=== PATIENT | female | born 1950 | race Caucasian/White ===

== ENCOUNTER → 2016-05-28 | Outpatient (CLI) | payer BC ==
--- NOTE | 2016-05-29 11:13 | MM ---
Reason for exam: screening (asymptomatic). Last mammogram was performed 1 year ago. History: Patient is postmenopausal and had first child at age 35. Family history of breast cancer in mother at age 56. Benign stereotactic core biopsy of the left breast, March 01, 2001. Took estrogen for 2 years beginning at age 42. Took progesterone for 2 years beginning at age 44. Physical Findings: A clinical breast exam by your physician is recommended on an annual basis and results should be correlated with mammographic findings. MG Screening Mammo w CAD Bilateral CC and MLO view(s) were taken. Prior study comparison: May 15, 2015, bilateral MG screening mammo w CAD. May 02, 2014, bilateral MG screening mammo w CAD. The breast tissue is heterogeneously dense. This may lower the sensitivity of mammography. Focal asymmetry upper right breast seen on MLO view. This finding is changed when compared with previous exams. ASSESSMENT: Incomplete: need additional imaging evaluation, BI-RAD 0 RECOMMENDATION: Special view mammogram of the right breast. If lesion persists on supplemental views, image directed ultrasound is recommended. [facility] will attempt to contact patient to return for supplemental views and ultrasound if indicated.
== END | disposition home or self-care (01) ==
LOC: RADMAMWWP 07:03
PROVIDERS: ATTEND Family Medicine
DX: Z12.31 Encounter for screening mammogram for malignant neoplasm of breast (principal)

== ENCOUNTER → 2016-06-02 | Outpatient (CLI) | payer BC ==
--- NOTE | 2016-06-02 08:33 | MM ---
Reason for exam: additional evaluation requested from abnormal screening. Last mammogram was performed less than 1 month ago. History: Patient is postmenopausal and had first child at age 35. Family history of breast cancer in mother at age 56. Benign stereotactic core biopsy of the left breast, March 01, 2001. Took estrogen for 2 years beginning at age 42. Took progesterone for 2 years beginning at age 44. Physical Findings: Nurse did not find any significant physical abnormalities on exam. MG Work Up Mamm w CAD RT Spot compression CC, spot compression MLO, and ML view(s) were taken of the right breast. Prior study comparison: May 28, 2016, bilateral MG screening mammo w CAD. May 15, 2015, bilateral MG screening mammo w CAD. There is no discrete abnormality including area of concern. These results were verbally communicated with the patient and result sheet given to the patient on 06/02/16. ASSESSMENT: Probably benign, BI-RAD 3 RECOMMENDATION: Follow-up diagnostic mammogram of the right breast in 6 months.
== END | disposition home or self-care (01) ==
LOC: RADMAMWWP 07:11
PROVIDERS: ATTEND Family Medicine
DX: R92.8 Other abnormal and inconclusive findings on diagnostic imaging of breast (principal)

== ENCOUNTER → 2016-07-11 | Outpatient (CLI) | payer BC ==
--- NOTE | 2016-07-11 09:07 | BD ---
EXAMINATION TYPE: MG DEXA axial skeleton. DATE OF EXAM: 07/11/2016 7:35 AM COMPARISON: NONE CLINICAL HISTORY: Height: 62 Weight: 133.9 FRAX RISK QUESTIONS: Alcohol (3 or more units per day): yes Family History (Parent hip fracture): no Glucocorticoids (More than 3mos): no (Ex: prednisone, prednisolone, methylprednisolone, dexamethasone, and hydrocortisone). History of Fracture in Adulthood: no Secondary Osteoporosis: 1. Type 1 Diabetes: no 2. Hyperthyroidism: no 3. Menopause before 45: yes 4. Malnutrition: no 5. Chronic liver disease: no Rheumatoid Arthritis: no Current Tobacco Use: no RISK FACTORS HISTORY OF: Hip Fracture (Right/Left): no Spine Fracture: no History of Wrist Fracture: no Surgery to Spine/Hip(right/left)/Wrist (right/left): no Family History of Osteoporosis: no Active: yes Diet low in dairy products/other sources of calcium: no Postmenopausal woman: hysterectomy age 44 Lost more than 2 inches in height since high school: no Frequent falls: no Adrenal Insufficiency: no MEDICATIONS: anxiety meds EXAM MEASUREMENTS: Bone mineral densitometry was performed using the [employer] System. Bone mineral density as measured about the Lumbar spine is: ----- L1-L4(G/cm2): 0.911 T Score Values are as follows: ----- L2: -2.6 ----- L3: -1.7 ----- L4: -2.4 ----- L1-L4: -2.2 Bone mineral density has: increased 4.2 % since study of: 07.10.2014 Bone mineral density about the R hip (g/cm2): 0.867 Bone mineral density about the L hip (g/cm2): 0.874 T Score values are as follows: -----R Neck: -1.2 -----L Neck: -1.2 -----R Intertrochanter: -1.5 -----L Intertrochanter: -1.6 Bone mineral density has: increased 1.4 % since study of: 07.10.2014 IMPRESSION: OSTEOPENIA. MAJOR OSTEOPOROTIC FRACTURE RISK: 8.1% HIP FRACTURE RISK: 0.7% NOTE: T-SCORE=SD OF THE YOUNG ADULT MEAN.
== END | disposition home or self-care (01) ==
LOC: RADBDWWP 07:13
PROVIDERS: ATTEND Family Medicine
DX: Z13.820 Encounter for screening for osteoporosis (principal); M85.80 Other specified disorders of bone density and structure, unspecified site
CPT/HCPCS: 77080

== ENCOUNTER → 2016-12-04 | Outpatient (CLI) | payer BC ==
--- NOTE | 2016-12-05 09:03 | MM ---
Reason for exam: follow-up at short interval from prior study. Last mammogram was performed 6 months ago. History: Patient is postmenopausal and had first child at age 35. Family history of breast cancer in mother at age 56. Benign stereotactic core biopsy of the left breast, March 01, 2001. Took estrogen for 2 years beginning at age 42. Took progesterone for 2 years beginning at age 44. Physical Findings: Nurse did not find any significant physical abnormalities on exam. MG Diagnostic Mammo RT w CAD CC and MLO view(s) were taken of the right breast. Prior study comparison: June 02, 2016, right breast MG work up mamm w CAD RT. May 28, 2016, bilateral MG screening mammo w CAD. The breast tissue is heterogeneously dense. This may lower the sensitivity of mammography. Stable benign calcifications. No significant new findings when compared with previous films. These results were verbally communicated with the patient and result sheet given to the patient on 12/04/16. ASSESSMENT: Benign, BI-RAD 2 RECOMMENDATION: Routine screening mammogram of both breasts in 6 months. Back on schedule.
== END | disposition home or self-care (01) ==
LOC: RADMAMWWP 07:43
PROVIDERS: ATTEND Obstetrics & Gynecology
DX: R92.8 Other abnormal and inconclusive findings on diagnostic imaging of breast (principal)

== ENCOUNTER → 2017-06-22 | Outpatient (CLI) | payer BC ==
--- NOTE | 2017-06-23 08:57 | MM ---
Reason for exam: screening (asymptomatic). Last mammogram was performed 7 months ago. History: Patient is postmenopausal and had first child at age 35. Family history of breast cancer in mother at age 56. Benign stereotactic core biopsy of the left breast, March 01, 2001. Took estrogen for 2 years beginning at age 42. Took progesterone for 2 years beginning at age 44. Physical Findings: A clinical breast exam by your physician is recommended on an annual basis and results should be correlated with mammographic findings. MG Screening Mammo w CAD Bilateral CC and MLO view(s) were taken. Prior study comparison: December 04, 2016, right breast MG diagnostic mammo RT w CAD. June 02, 2016, right breast MG work up mamm w CAD RT. The breast tissue is heterogeneously dense. This may lower the sensitivity of mammography. Stable benign calcifications. No significant changes when compared with prior studies. ASSESSMENT: Benign, BI-RAD 2 RECOMMENDATION: Routine screening mammogram of both breasts in 1 year.
== END | disposition home or self-care (01) ==
LOC: RADMAMWWP 07:21
PROVIDERS: ATTEND Family Medicine
DX: Z12.31 Encounter for screening mammogram for malignant neoplasm of breast (principal)
CPT/HCPCS: 77067

== ENCOUNTER → 2017-12-09 | Outpatient (CLI) | payer BC, MEDICARE ==
--- NOTE | 2017-12-09 15:10 | BD ---
EXAMINATION TYPE: Axial Bone Density DATE OF EXAM: 12/09/2017 COMPARISON: NONE CLINICAL HISTORY: 66-year-old female age-related osteoporosis, postmenopausal screening Height: 5 FT 2 IN Weight: 134 FRAX RISK QUESTIONS: Secondary Osteoporosis: 3. Menopause before 45: YES RISK FACTORS HISTORY OF: Active: YES Postmenopausal woman: TOTAL HYST AGE 44 Take estrogen and/or progesterone medications: TOOK AROUND 6 MONTHS AFTER HYST MEDICATIONS: Additional Medications: ANTI STRESS MEDS,VITAMINS Additional History: EXAM MEASUREMENTS: Bone mineral densitometry was performed using the [employer] System. Bone mineral density as measured about the Lumbar spine is: ----- L1-L4(G/cm2): 0.976 T Score Values are as follows: ----- L2: -2.0 ----- L3: -1.3 ----- L4: -1.9 ----- L1-L4: -1.7 Bone mineral density has: INCREASED 6.6 % since study of: 2016 Bone mineral density about the R hip (g/cm2): 0.875 Bone mineral density about the L hip (g/cm2): 0.908 T Score values are as follows: -----R Neck: -1.2 -----L Neck: -0.9 -----R Total: -0.9 -----L Total: -0.9 Bone mineral density has: INCREASED 4.0 % since study of: 2016 IMPRESSION: Osteopenia (T Score between -2.5 and -1). There is slightly increased risk of fracture and the patient may be considered for treatment. Re-Screen 2-5 years. NOTE: T-SCORE=SD OF THE YOUNG ADULT MEAN.
== END | disposition home or self-care (01) ==
LOC: RADBDWWP 07:15
PROVIDERS: ATTEND Family Medicine
DX: M85.89 Other specified disorders of bone density and structure, multiple sites (principal)
CPT/HCPCS: 77080

== ENCOUNTER → 2018-06-23 | Outpatient (CLI) | payer MEDICARE, BC ==
--- NOTE | 2018-06-24 10:14 | MM ---
Reason for exam: screening (asymptomatic). Last mammogram was performed 1 year ago. History: Patient is postmenopausal and had first child at age 35. Family history of breast cancer in mother at age 56. Benign stereotactic core biopsy of the left breast, March 01, 2001. Took estrogen for 2 years beginning at age 42. Took progesterone for 2 years beginning at age 44. Physical Findings: A clinical breast exam by your physician is recommended on an annual basis and results should be correlated with mammographic findings. MG 3D Screening Mammo W/Cad Bilateral CC and MLO view(s) were taken. Prior study comparison: June 22, 2017, bilateral MG screening mammo w CAD. December 04, 2016, right breast MG diagnostic mammo RT w CAD. The breast tissue is heterogeneously dense. This may lower the sensitivity of mammography. Stable benign calcifications. There is no discrete abnormality. No significant changes when compared with prior studies. ASSESSMENT: Benign, BI-RAD 2 RECOMMENDATION: Routine screening mammogram of both breasts in 1 year.
== END | disposition home or self-care (01) ==
LOC: RADMAMWWP 08:39
PROVIDERS: ATTEND Family Medicine
DX: Z12.31 Encounter for screening mammogram for malignant neoplasm of breast (principal)
CPT/HCPCS: 77063; 77067

== ENCOUNTER 2018-08-04 15:17 | Emergency (ER) | payer MEDICARE, BC ==
[2018-08-04 15:26] VITALS: RESP 16
[2018-08-04] MEDS ORDERED: ACETAMINOPHEN TAB 325 MG TAB PO STA (15:47)
[2018-08-04] MEDS ORDERED: SODIUM CHLORIDE 0.9% 1,000 ML IV ONE (15:47)
[2018-08-04 16:13] LABS: Basophils % (A) 0 %; Eosinophils # (A) 0.1 k/uL (0-0.7); Eosinophils % (A) 1 %; HCT 39.3 % (34.0-46.0); HGB 13.1 gm/dL (11.4-16.0); Lymphocytes # (A) 1.9 k/uL (1.0-4.8); Lymphocytes % (A) 17 %; MCH 29.9 pg (25.0-35.0); MCHC 33.3 g/dL (31.0-37.0); MCV 89.9 fL (80.0-100.0); Mean Platelet Volume 7.8; Monocytes # (A) 0.3 k/uL (0-1.0); Monocytes % (A) 3 %; Neutrophils # (A) 8.7 k/uL (1.3-7.7); Neutrophils % (A) 78 %; Platelet Count 214 k/uL (150-450); RBC 4.37 m/uL (3.80-5.40); RDW 14.7 % (11.5-15.5); WBC 11.1 k/uL (3.8-10.6)
[2018-08-04 16:21] LABS: ALT 26 U/L (9-52); AST 23 U/L (14-36); Albumin 4.7 g/dL (3.5-5.0); Alkaline Phosphatase 43 U/L (38-126); Anion Gap 7 mmol/L; Blood Urea Nitrogen 17 mg/dL (7-17); Carbon Dioxide 26 mmol/L (22-30); Chloride 106 mmol/L (98-107); Glucose 102 mg/dL (74-99); Potassium 4.3 mmol/L (3.5-5.1); Sodium 139 mmol/L (137-145); Total Bilirubin 0.6 mg/dL (0.2-1.3)
--- NOTE | 2018-08-04 16:22 | XR ---
EXAMINATION TYPE: XR chest 2V DATE OF EXAM: 08/04/2018 COMPARISON: NONE HISTORY: Shortness of breath TECHNIQUE: Frontal and lateral views of the chest are obtained. FINDINGS: Scattered senescent parenchymal changes noted. No evidence for infiltrate. No evidence for atelectasis. Heart size is stable. Mediastinal structures are stable and grossly unremarkable. No evidence for hilar prominence. Degenerative changes dorsal spine. IMPRESSION: 1. No evidence for acute pulmonary disease.
--- NOTE | 2018-08-04 17:07 | ED ---
URI HPI - General Chief Complaint: Upper Respiratory Infection Stated Complaint: CONGESTION, CHUCK, LETHARGY Time Seen by Provider: 08/04/18 15:33 Source: patient, RN notes reviewed Mode of arrival: wheelchair Limitations: no limitations - History of Present Illness Initial Comments: This 67-year-old female presents emergency Department chief complaint of URI symptoms. Patient states she's been sick for 1 week states that she is not getting better states is worse today. States that she just very fatigued, tired, increased in size for pressure and cough. Patient states her cough is productive at times. Denies any chest pain. She does admit to occasional shortness of breath. Patient has no nausea vomiting diarrhea constipation denies any relief with [id number] medications. She does admit that she watches small child who has sick with current symptoms temp 103. Patient denies taking any recent Tylenol Motrin. - Related Data Home Medications Medication Instructions Recorded Confirmed Acetaminophen/Diphenhydramine 1 tab PO HS 08/04/18 08/04/18 [Tylenol PM 500-25mg] Calcium Carbonate [Calcium] 600 mg PO DAILY 08/04/18 08/04/18 Escitalopram [Lexapro] 10 mg PO DAILY 08/04/18 08/04/18 [place]-3 Fatty Acids [[place]-3] 1,000 mg PO DAILY 08/04/18 08/04/18 Previous Rx's Medication Instructions Recorded Cefuroxime Axetil [Ceftin] 500 mg PO BID #20 tab 08/04/18 Allergies Allergy/AdvReac Type Severity Reaction Status Date / Time amoxicillin Allergy Unknown Verified 08/04/18 15:26 latex Allergy Rash/Hives Verified 08/04/18 16:27 nickel Allergy Rash/Hives Verified 08/04/18 16:31 Review of Systems ROS Statement: Those systems with pertinent positive or pertinent negative responses have been documented in the HPI. ROS Other: All systems not noted in ROS Statement are negative. Past Medical History Past Medical History: No Reported History History of Any Multi-Drug Resistant Organisms: None Reported Past Surgical History: Hysterectomy, Orthopedic Surgery Past Psychological History: Anxiety Smoking Status: Never smoker Past Alcohol Use History: None Reported Past Drug Use History: None Reported General Exam Limitations: no limitations General appearance: alert, in no apparent distress Head exam: Present: atraumatic, normocephalic, normal inspection Eye exam: Present: normal appearance, PERRL, EOMI. Absent: scleral icterus, conjunctival injection, periorbital swelling ENT exam: Present: normal exam, normal oropharynx, mucous membranes moist, TM's normal bilaterally Neck exam: Present: normal inspection, full ROM. Absent: tenderness, meningismus, lymphadenopathy Respiratory exam: Present: normal lung sounds bilaterally. Absent: respiratory distress, wheezes, rales, rhonchi, stridor Cardiovascular Exam: Present: regular rate, normal rhythm, normal heart sounds. Absent: systolic murmur, diastolic murmur, rubs, gallop, clicks GI/Abdominal exam: Present: soft, normal bowel sounds. Absent: distended, tenderness, guarding, rebound, rigid Neurological exam: Present: alert, oriented X3, CN II-XII intact Skin exam: Present: warm, dry, intact, normal color. Absent: rash Course Vital Signs 08/04/18 08/04/18 08/04/18 15:23 17:38 18:01 Temperature 100.3 F H 99.0 F Pulse Rate 81 72 Respiratory 16 16 Rate Blood Pressure 109/73 115/71 O2 Sat by Pulse 96 97 Oximetry Medical Decision Making - Lab Data Result diagrams: 08/04/18 16:02 08/04/18 16:02 Lab Results 08/04/18 08/04/18 08/04/18 Range/Units 16:02 16:02 16:02 WBC 11.1 H (3.8-10.6) k/uL RBC 4.37 (3.80-5.40) m/uL Hgb 13.1 (11.4-16.0) gm/dL Hct 39.3 (34.0-46.0) % MCV 89.9 (80.0-100.0) fL MCH 29.9 (25.0-35.0) pg MCHC 33.3 (31.0-37.0) g/dL RDW 14.7 (11.5-15.5) % Plt Count 214 (150-450) k/uL Neutrophils % 78 % Lymphocytes % 17 % Monocytes % 3 % Eosinophils % 1 % Basophils % 0 % Neutrophils # 8.7 H (1.3-7.7) k/uL Lymphocytes # 1.9 (1.0-4.8) k/uL Monocytes # 0.3 (0-1.0) k/uL Eosinophils # 0.1 (0-0.7) k/uL Basophils # 0.0 (0-0.2) k/uL Sodium 139 (137-145) mmol/L Potassium 4.3 (3.5-5.1) mmol/L Chloride 106 (98-107) mmol/L Carbon Dioxide 26 (22-30) mmol/L Anion Gap 7 mmol/L BUN 17 (7-17) mg/dL Creatinine 0.68 (0.52-1.04) mg/dL Est GFR (CKD-EPI)AfAm >90 (>60 ml/min/1.73 sqM) Est GFR (CKD-EPI)NonAf >90 (>60 ml/min/1.73 sqM) Glucose 102 H (74-99) mg/dL Plasma Lactic Acid Fredo (0.7-2.0) mmol/L Calcium 10.0 (8.4-10.2) mg/dL Total Bilirubin 0.6 (0.2-1.3) mg/dL AST 23 (14-36) U/L ALT 26 (9-52) U/L Alkaline Phosphatase 43 (38-126) U/L Troponin I (0.000-0.034) ng/mL Total Protein 8.0 (6.3-8.2) g/dL Albumin 4.7 (3.5-5.0) g/dL Urine Color Urine Appearance (Clear) Urine pH (5.0-8.0) Ur Specific [place] (1.001-1.035) Urine Protein (Negative) Urine Glucose (UA) (Negative) Urine Ketones (Negative) Urine Blood (Negative) Urine Nitrite (Negative) Urine Bilirubin (Negative) Urine Urobilinogen (<2.0) mg/dL Ur Leukocyte Esterase (Negative) Urine RBC (0-5) /hpf Urine WBC (0-5) /hpf Ur Squamous Epith Cells (0-4) /hpf Amorphous Sediment (None) /hpf Urine Bacteria (None) /hpf Heterophile Antibody Negative (Negative) Influenza Type A RNA (Not Detectd) Influenza Type B (PCR) (Not Detectd) 08/04/18 08/04/18 08/04/18 Range/Units 16:02 16:02 16:09 WBC (3.8-10.6) k/uL RBC (3.80-5.40) m/uL Hgb (11.4-16.0) gm/dL Hct (34.0-46.0) % MCV (80.0-100.0) fL MCH (25.0-35.0) pg MCHC (31.0-37.0) g/dL RDW (11.5-15.5) % Plt Count (150-450) k/uL Neutrophils % % Lymphocytes % % Monocytes % % Eosinophils % % Basophils % % Neutrophils # (1.3-7.7) k/uL Lymphocytes # (1.0-4.8) k/uL Monocytes # (0-1.0) k/uL Eosinophils # (0-0.7) k/uL Basophils # (0-0.2) k/uL Sodium (137-145) mmol/L Potassium (3.5-5.1) mmol/L Chloride (98-107) mmol/L Carbon Dioxide (22-30) mmol/L Anion Gap mmol/L BUN (7-17) mg/dL Creatinine (0.52-1.04) mg/dL Est GFR (CKD-EPI)AfAm (>60 ml/min/1.73 sqM) Est GFR (CKD-EPI)NonAf (>60 ml/min/1.73 sqM) Glucose (74-99) mg/dL Plasma Lactic Acid Fredo 0.9 (0.7-2.0) mmol/L Calcium (8.4-10.2) mg/dL Total Bilirubin (0.2-1.3) mg/dL AST (14-36) U/L ALT (9-52) U/L Alkaline Phosphatase (38-126) U/L Troponin I <0.012 (0.000-0.034) ng/mL Total Protein (6.3-8.2) g/dL Albumin (3.5-5.0) g/dL Urine Color Urine Appearance (Clear) Urine pH (5.0-8.0) Ur Specific [place] (1.001-1.035) Urine Protein (Negative) Urine Glucose (UA) (Negative) Urine Ketones (Negative) Urine Blood (Negative) Urine Nitrite (Negative) Urine Bilirubin (Negative) Urine Urobilinogen (<2.0) mg/dL Ur Leukocyte Esterase (Negative) Urine RBC (0-5) /hpf Urine WBC (0-5) /hpf Ur Squamous Epith Cells (0-4) /hpf Amorphous Sediment (None) /hpf Urine Bacteria (None) /hpf Heterophile Antibody (Negative) Influenza Type A RNA Not Detected (Not Detectd) Influenza Type B (PCR) Not Detected (Not Detectd) 08/04/18 Range/Units 17:00 WBC (3.8-10.6) k/uL RBC (3.80-5.40) m/uL Hgb (11.4-16.0) gm/dL Hct (34.0-46.0) % MCV (80.0-100.0) fL MCH (25.0-35.0) pg MCHC (31.0-37.0) g/dL RDW (11.5-15.5) % Plt Count (150-450) k/uL Neutrophils % % Lymphocytes % % Monocytes % % Eosinophils % % Basophils % % Neutrophils # (1.3-7.7) k/uL Lymphocytes # (1.0-4.8) k/uL Monocytes # (0-1.0) k/uL Eosinophils # (0-0.7) k/uL Basophils # (0-0.2) k/uL Sodium (137-145) mmol/L Potassium (3.5-5.1) mmol/L Chloride (98-107) mmol/L Carbon Dioxide (22-30) mmol/L Anion Gap mmol/L BUN (7-17) mg/dL Creatinine (0.52-1.04) mg/dL Est GFR (CKD-EPI)AfAm (>60 ml/min/1.73 sqM) Est GFR (CKD-EPI)NonAf (>60 ml/min/1.73 sqM) Glucose (74-99) mg/dL Plasma Lactic Acid Fredo (0.7-2.0) mmol/L Calcium (8.4-10.2) mg/dL Total Bilirubin (0.2-1.3) mg/dL AST (14-36) U/L ALT (9-52) U/L Alkaline Phosphatase (38-126) U/L Troponin I (0.000-0.034) ng/mL Total Protein (6.3-8.2) g/dL Albumin (3.5-5.0) g/dL Urine Color Colorless Urine Appearance Clear (Clear) Urine pH 6.5 (5.0-8.0) Ur Specific [place] 1.005 (1.001-1.035) Urine Protein Negative (Negative) Urine Glucose (UA) Negative (Negative) Urine Ketones Negative (Negative) Urine Blood Negative (Negative) Urine Nitrite Negative (Negative) Urine Bilirubin Negative (Negative) Urine Urobilinogen <2.0 (<2.0) mg/dL Ur Leukocyte Esterase Moderate H (Negative) Urine RBC 2 (0-5) /hpf Urine WBC 2 (0-5) /hpf Ur Squamous Epith Cells 1 (0-4) /hpf Amorphous Sediment Rare H (None) /hpf Urine Bacteria Rare H (None) /hpf Heterophile Antibody (Negative) Influenza Type A RNA (Not Detectd) Influenza Type B (PCR) (Not Detectd) Disposition Clinical Impression: Upper respiratory infection, Sinusitis Disposition: HOME SELF-CARE Condition: Stable Instructions (If sedation given, give patient instructions): Upper Respiratory Infection (ED) Additional Instructions: Please return to the Emergency Department if symptoms worsen or any other concerns. Prescriptions: Cefuroxime Axetil [Ceftin] 500 mg PO BID #20 tab Is patient prescribed a controlled substance at d/c from ED?: No Referrals: Ernie White DO [Primary Care Provider] - 1-2 days Time of Disposition: 18:06
[2018-08-04 17:17] LABS: Amorphous Sediment,Urine Rare /hpf; Appearance,Urine Clear (Clear); Bacteria,Urine Rare /hpf; Bilirubin,Urine Negative (Negative); Blood,Urine Negative (Negative); Color,Urine Colorless; Glucose,Urine (UA) Negative (Negative); Ketones,Urine Negative (Negative); Leukocyte Esterase,Urine Moderate (Negative); Nitrite,Urine Negative (Negative); PH, Urine 6.5 (5.0-8.0); Protein,Urine Negative (Negative); RBC,Urine 2 /hpf (0-5); Specific Gravity,Urine 1.005 (1.001-1.035); Squamous Epithelial Cell,Urine 1 /hpf (0-4); Urobilinogen,Urine <2.0 mg/dL (<2.0)
[2018-08-04 17:39] VITALS: TEMP 99
[2018-08-04 18:02] VITALS: BP 115/71; PULSE 72
[2018-08-04] MEDS ORDERED: cefTRIAXone IN SWFI 1,000 MG/10 ML SYRINGE IVP STA (18:05)
== END 2018-08-04 18:22 | disposition home or self-care (01) ==
LOC: EC 15:17
DX: J06.9 Acute upper respiratory infection, unspecified (principal); J32.9 Chronic sinusitis, unspecified; F41.9 Anxiety disorder, unspecified; Z90.710 Acquired absence of both cervix and uterus; Z98.890 Other specified postprocedural states; Z79.899 Other long term (current) drug therapy; Z88.0 Allergy status to penicillin; Z91.040 Latex allergy status; Z91.048 Other nonmedicinal substance allergy status
CPT/HCPCS: 36415; 80053; 83605; 84484; 85025; 86308; 81001; 87040; 87502; 71046; 99285; 96374; 96361 ×2; J0696

== ENCOUNTER → 2019-01-19 | Outpatient (CLI) | payer MEDICARE, BC ==
--- NOTE | 2019-01-19 16:33 | BD ---
EXAMINATION TYPE: Axial Bone Density DATE OF EXAM: 01/19/2019 COMPARISON: 2017 CLINICAL HISTORY: osteopenia Height: 5'2 1/2 Weight: 127 FRAX RISK QUESTIONS: Secondary Osteoporosis: 3. Menopause before 45: y RISK FACTORS HISTORY OF: Postmenopausal woman: y MEDICATIONS: Osteoporosis Medications: Which medication: Prolia How Lon years Additional Medications: anxiety, Additional History: EXAM MEASUREMENTS: Bone mineral densitometry was performed using the [employer] System. Bone mineral density as measured about the Lumbar spine is: ----- L1-L4(G/cm2): 0.981 T Score Values are as follows: ----- L2: -2.3 ----- L3: -1.2 ----- L4: -1.5 ----- L1-L4: -1.7 Bone mineral density has: Increased 1.3% since study of: 12/09/2017 Bone mineral density about the R hip (g/cm2): 0.875 Bone mineral density about the L hip (g/cm2): 0.901 T Score values are as follows: -----R Neck: -1.2 -----L Neck: -1.0 -----R Total: -0.8 -----L Total: -0.9 Bone mineral density has: Increased 0.8% since study of: 12/09/2017 IMPRESSION: Osteopenia (T Score between -2.5 and -1). There is slightly increased risk of fracture and the patient may be considered for treatment. Re-Screen 2-5 years. NOTE: T-SCORE=SD OF THE YOUNG ADULT MEAN.
== END | disposition home or self-care (01) ==
LOC: RADBDWWP 09:22
PROVIDERS: ATTEND Obstetrics & Gynecology
DX: M85.88 Other specified disorders of bone density and structure, other site (principal)
CPT/HCPCS: 77080

== ENCOUNTER 2019-05-03 12:44 | Emergency (ER) | payer MEDICARE, BC ==
[2019-05-03 12:59] VITALS: RESP 16
--- NOTE | 2019-05-03 13:59 | CT ---
EXAMINATION TYPE: CT brain cspine wo con, CT facial bones wo con DATE OF EXAM: 05/03/2019 COMPARISON: NONE HISTORY: Fall injury with headache, neck pain, and facial pain. CT DLP: 1045.5 mGycm. Automated Exposure Control for Dose Reduction was Utilized. TECHNIQUE: CT scan of the head and cervical spine are performed without contrast. FINDINGS: There is no acute intracranial hemorrhage or midline shift identified. Mild ventricular a nd sulcal prominence. The calvarium is intact. Nasal bones are intact. Orbital floors and philip are intact. The globes are intact bilaterally. Intra conal fat is preserved bilaterally. Zygomatic arches are intact. The mandible is intact. Temporomandi bular joints are maintained bilaterally. Pterygoid plates are intact. Visualized maxilla is intact. P aranasal sinuses are grossly clear. No suspicious opacification mastoid air cells bilaterally. Cervical spine is visualized in its entirety from C1 through upper thoracic levels and demonstrates s atisfactory alignment without evidence of acute fracture or dislocation. Prevertebral soft tissue ap pears within normal limits. The C1-C2 articulation is within normal limits on the coronal images. Vertebral body heights are maintained. Moderate multilevel disc space narrowing most prominent at C3- C4, C5-C6, C6-C7 levels. Posterior spur disc complexes effacing the anterior thecal sac at C4-C5 thro ugh the C6-C7 levels on sagittal and axial images. Axial images show uncovertebral facet degenerative changes bilaterally contributing to [id number] te bilateral neural foraminal narrowing at C4-C5 level and right uncovertebral facet spurring causing asymmetric mild right-sided neural foraminal narrowing at C6-C7 level. Small left thyroid lobe noted . Lung apices show no pneumothorax. IMPRESSION: 1. There is no acute fracture or dislocation evident in the cervical spine. 2. No acute intracranial hemorrhage or midline shift is seen. 3. No acute displaced facial bone fracture.
--- NOTE | 2019-05-03 14:12 | ED ---
Fall HPI - General Chief Complaint: Fall Stated Complaint: Fall Time Seen by Provider: 05/03/19 13:01 Source: patient, RN notes reviewed Mode of arrival: ambulatory Limitations: no limitations - History of Present Illness Initial Comments: 68-year-old female presents emergency Department chief complaint of a fall. Patient states that she has not been feeling well after her shingles vaccine. She states she had some reaction after her first. She states that she's going to the bathroom on Thursday states she went to get up from for striking had passed out. She states that her tooth went to her lower lip. She states that she felt fine though she has had increasing dizziness but complains more of a headache. Patient was seen at urgent care and sent here for further evaluation for CT. Patient denies any focal weakness denies any current nausea vomiting no chest pain or shortness breath or extremity injury. - Related Data Home Medications Medication Instructions Recorded Confirmed Acetaminophen/Diphenhydramine 1 tab PO HS 08/04/18 08/04/18 [Tylenol PM 500-25mg] Calcium Carbonate [Calcium] 600 mg PO DAILY 08/04/18 08/04/18 Escitalopram [Lexapro] 10 mg PO DAILY 08/04/18 08/04/18 Coleridge-3 Fatty Acids [Coleridge-3] 1,000 mg PO DAILY 08/04/18 08/04/18 Previous Rx's Medication Instructions Recorded Cefuroxime Axetil [Ceftin] 500 mg PO BID #20 tab 08/04/18 Allergies Allergy/AdvReac Type Severity Reaction Status Date / Time amoxicillin Allergy Unknown Verified 05/03/19 12:59 latex Allergy Rash/Hives Verified 05/03/19 12:59 nickel Allergy Rash/Hives Verified 05/03/19 12:59 Review of Systems ROS Statement: Those systems with pertinent positive or pertinent negative responses have been documented in the HPI. ROS Other: All systems not noted in ROS Statement are negative. Past Medical History Past Medical History: No Reported History Additional Past Medical History / Comment(s): osteoporosis History of Any Multi-Drug Resistant Organisms: None Reported Past Surgical History: Hysterectomy, Orthopedic Surgery Past Psychological History: Anxiety Smoking Status: Never smoker Past Alcohol Use History: None Reported Past Drug Use History: None Reported General Exam Limitations: no limitations General appearance: alert, in no apparent distress Head exam: Present: atraumatic, normocephalic, normal inspection Eye exam: Present: normal appearance, PERRL, EOMI. Absent: scleral icterus, conjunctival injection, periorbital swelling ENT exam: Present: mucous membranes moist, TM's normal bilaterally, normal external ear exam. Absent: normal exam, normal oropharynx (Lower lip laceration, healing no signs of infection or erythema) Neck exam: Present: normal inspection, full ROM. Absent: tenderness, meningismus, lymphadenopathy Respiratory exam: Present: normal lung sounds bilaterally. Absent: respiratory distress, wheezes, rales, rhonchi, stridor Cardiovascular Exam: Present: regular rate, normal rhythm, normal heart sounds. Absent: systolic murmur, diastolic murmur, rubs, gallop, clicks GI/Abdominal exam: Present: soft, normal bowel sounds. Absent: distended, tenderness, guarding, rebound, rigid Neurological exam: Present: alert, oriented X3, CN II-XII intact, reflexes normal. Absent: motor sensory deficit Skin exam: Present: warm, dry, intact, normal color. Absent: rash Course Vital Signs 05/03/19 05/03/19 12:53 14:25 Temperature 97.8 F 98.3 F Pulse Rate 55 L 50 L Respiratory 16 16 Rate Blood Pressure 129/75 122/69 O2 Sat by Pulse 100 100 Oximetry Medical Decision Making - Medical Decision Making All imaging was reviewed and negative for acute abnormality. Patient does have mild concussion symptoms. Return parameters were discussed. Lip laceration was caused on Thursday no need for closure. Disposition Clinical Impression: Fall, Concussion, Facial contusion, Lip laceration Disposition: HOME SELF-CARE Condition: Stable Instructions (If sedation given, give patient instructions): Concussion (ED) Additional Instructions: Please return to the Emergency Department if symptoms worsen or any other concerns. Is patient prescribed a controlled substance at d/c from ED?: No Referrals: Ernie White DO [Primary Care Provider] - 1-2 days Time of Disposition: 14:28
[2019-05-03 14:26] VITALS: BP 122/69; PULSE 50; TEMP 98.3
== END 2019-05-03 14:33 | disposition home or self-care (01) ==
LOC: EC 12:44
DX: S01.511A Laceration without foreign body of lip, initial encounter (principal); S06.0X0A Concussion without loss of consciousness, initial encounter; F41.9 Anxiety disorder, unspecified; M81.0 Age-related osteoporosis without current pathological fracture; Z79.899 Other long term (current) drug therapy; Z91.040 Latex allergy status; Z88.0 Allergy status to penicillin; Z91.048 Other nonmedicinal substance allergy status; Z98.890 Other specified postprocedural states; W19.XXXA Unspecified fall, initial encounter; Y92.002 Bathroom of unspecified non-institutional (private) residence as the place of occurrence of the external cause
CPT/HCPCS: 70450; 70486; 72125; 99283

== ENCOUNTER → 2019-09-01 | Outpatient (CLI) | payer MEDICARE, BC ==
--- NOTE | 2019-09-06 10:49 | MM ---
Reason for exam: screening (asymptomatic). Last mammogram was performed 1 year and 2 months ago. History: Patient is postmenopausal and had first child at age 35. Family history of breast cancer in mother at age 56. Benign stereotactic core biopsy of the left breast, March 01, 2001. Took estrogen for 2 years beginning at age 42. Took progesterone for 2 years beginning at age 44. Physical Findings: A clinical breast exam by your physician is recommended on an annual basis and results should be correlated with mammographic findings. MG 3D Screening Mammo W/Cad Bilateral CC and MLO view(s) were taken. Prior study comparison: June 23, 2018, bilateral MG 3d screening mammo w/cad. June 22, 2017, bilateral MG screening mammo w CAD. The breast tissue is heterogeneously dense. This may lower the sensitivity of mammography. Benign appearing calcifications in the right breast. Left biopsy marker noted. No significant changes when compared with prior studies. ASSESSMENT: Benign, BI-RAD 2 RECOMMENDATION: Routine screening mammogram of both breasts in 1 year.
== END | disposition home or self-care (01) ==
LOC: RADMAMWWP 12:44
PROVIDERS: ATTEND Obstetrics & Gynecology
DX: Z12.31 Encounter for screening mammogram for malignant neoplasm of breast (principal)
CPT/HCPCS: 77063; 77067

== ENCOUNTER → 2020-09-14 | Outpatient (CLI) | payer MEDICARE ==
--- NOTE | 2020-09-18 08:42 | MM ---
Reason for exam: screening (asymptomatic). Last mammogram was performed 1 year ago. History: Patient is postmenopausal and had first child at age 35. Family history of breast cancer in mother at age 56. Benign stereotactic core biopsy of the left breast, March 01, 2001. Took estrogen for 2 years beginning at age 42. Took progesterone for 2 years beginning at age 44. Physical Findings: A clinical breast exam by your physician is recommended on an annual basis and results should be correlated with mammographic findings. MG 3D Screening Mammo W/Cad Bilateral CC and MLO view(s) were taken. Prior study comparison: September 01, 2019, bilateral MG 3d screening mammo w/cad. June 23, 2018, bilateral MG 3d screening mammo w/cad. The breast tissue is heterogeneously dense. This may lower the sensitivity of mammography. Previous mammotome biopsy in the left breast. An adjacent focal asymmetry appears more defined in the upper outer quadrant. Stable benign dystrophic calcifications 6 o'clock right breast. ASSESSMENT: Incomplete: need additional imaging evaluation, BI-RAD 0 RECOMMENDATION: Special view mammogram of the left breast. (3D) If lesion persists on supplemental views, image directed ultrasound is recommended. [facility] will attempt to contact patient to return for supplemental views and ultrasound if indicated.
== END | disposition home or self-care (01) ==
LOC: RADMAMWWP 08:11
PROVIDERS: ATTEND Family Medicine
DX: Z12.31 Encounter for screening mammogram for malignant neoplasm of breast (principal)
CPT/HCPCS: 77063; 77067

== ENCOUNTER → 2020-09-26 | Outpatient (CLI) | payer MEDICARE ==
--- NOTE | 2020-09-26 10:21 | MM ---
Reason for exam: additional evaluation requested from abnormal screening. Last mammogram was performed less than 1 month ago. History: Patient is postmenopausal and had first child at age 35. Family history of breast cancer in mother at age 56. Benign stereotactic core biopsy of the left breast, March 01, 2001. Took estrogen for 2 years beginning at age 42. Took progesterone for 2 years beginning at age 44. Physical Findings: Nurse did not find any significant physical abnormalities on exam. MG 3D Work Up W/Cad LT Spot compression CC, spot compression MLO, and LM view(s) were taken of the left breast. Prior study comparison: September 14, 2020, bilateral MG 3d screening mammo w/cad. September 01, 2019, bilateral MG 3d screening mammo w/cad. The breast tissue is heterogeneously dense. This may lower the sensitivity of mammography. Left 9mm nodule 1-2 o'clock 7.5cm from nipple adjacent to clip. These results were verbally communicated with the patient and result sheet given to the patient on 09/26/20. ASSESSMENT: Incomplete: need additional imaging evaluation, BI-RAD 0 RECOMMENDATION: Ultrasound of the left breast.
--- NOTE | 2020-09-26 10:22 | USB ---
Reason for exam: additional evaluation requested from abnormal screening. History: Patient is postmenopausal and had first child at age 35. Family history of breast cancer in mother at age 56. Benign stereotactic core biopsy of the left breast, March 01, 2001. Took estrogen for 2 years beginning at age 42. Took progesterone for 2 years beginning at age 44. US Breast Workup Limited LT Technologist: Syeda Storey Left limited breast ultrasound including focal area of concern, retroareolar and axilla demonstrates a 0.4 x 0.5 x 0.3cm cystic lesion with septation at 1 o'clock, most likely area seen on mammogram and a 0.7 x 0.4 x 0.4cm cystic, complicated lesion at 1 o'clock. Probably benign. These results were verbally communicated with the patient and result sheet given to the patient on 09/26/20. ASSESSMENT: Probably benign, BI-RAD 3 RECOMMENDATION: Ultrasound of the left breast in 6 months.
== END | disposition home or self-care (01) ==
LOC: RADMAMWWP 08:20
PROVIDERS: ATTEND Family Medicine
DX: R92.8 Other abnormal and inconclusive findings on diagnostic imaging of breast (principal)
CPT/HCPCS: 77065; 76642; G0279; 77061

== ENCOUNTER → 2021-03-08 | Outpatient (CLI) | payer MEDICARE ==
--- NOTE | 2021-03-08 16:13 | BD ---
EXAMINATION TYPE: Axial Bone Density DATE OF EXAM: 03/08/2021 COMPARISON: 01/19/2019 CLINICAL HISTORY: Height: 62 IN Weight: 131 LBS FRAX RISK QUESTIONS: Secondary Osteoporosis: 3. Menopause before 45: TOTAL HYST AGE 44 RISK FACTORS HISTORY OF: Family History of Osteoporosis: YES FATHER AND PATERNAL GRANDMOTHER Active: YES Postmenopausal woman: TOTAL HYST AGE 44 MEDICATIONS: Osteoporosis Medications: NOT NOW Which medication: Prolia FOSAMAX How Long: PROLIA FOR 4 YEARS; FOSAMAX FOR 10 YEARS Additional Medications: CALCIUM, VIT D, PROZAC LIKE MED, VIT C, ZINC, EXAM MEASUREMENTS: Bone mineral densitometry was performed using the [employer] System. Bone mineral density as measured about the Lumbar spine is: ----- L1-L4(G/cm2): 0.849 T Score Values are as follows: ----- L2: -2.3 ----- L3: -2.7 ----- L4: -3.2 ----- L1-L4: -2.8 Bone mineral density has: Decreased -13.9% since study of: Bone mineral density about the R hip (g/cm2): 0.801 Bone mineral density about the L hip (g/cm2): 0.831 T Score values are as follows: -----R Neck: -1.7 -----L Neck: -1.5 -----R Total: -1.7 -----L Total: -1.6 Bone mineral density has: Decreased -11.3% since study of: 01/19/2019 IMPRESSION: Osteoporosis (T Score less than -2.5). There is increased fracture risk and therapy is usually indicated based on age. Re-Screen 1-2 years. NOTE: T-SCORE=SD OF THE YOUNG ADULT MEAN.
== END | disposition home or self-care (01) ==
LOC: RADBDWWP 09:04
PROVIDERS: ATTEND Family Medicine
DX: M81.0 Age-related osteoporosis without current pathological fracture (principal)
CPT/HCPCS: 77080

== ENCOUNTER → 2021-05-10 | Outpatient (CLI) | payer MEDICARE ==
[~2021-05-10] MED LIST: DENOSUMAB 60 MG/ML 1 ML SYRINGE SQ ONE
[2021-05-10 10:14] VITALS: BP 123/73; PULSE 80; RESP 16; TEMP 98.3
== END | disposition home or self-care (01) ==
LOC: PROCWHC3 09:40
PROVIDERS: ATTEND Obstetrics & Gynecology
DX: M81.0 Age-related osteoporosis without current pathological fracture (principal)
CPT/HCPCS: 96372; J0897

== ENCOUNTER → 2021-09-24 | Outpatient (CLI) | payer MEDICARE ==
--- NOTE | 2021-09-26 07:21 | MM ---
Reason for Exam: Screening (asymptomatic). Last screening mammogram was performed 12 month(s) ago. Patient History: Menarche at age 19. First Full-Term at age 35. Late child-bearing (after 30). Left ovary removed at age 44. Right ovary removed at age 44. Hysterectomy at age 44. Postmenopausal. Estrogen for 2 years from age 42 until age 44. Used Progesterone. 03/01/2001, Benign Stereotactic Core Biopsy on the left side. Mother had breast cancer, age 56. Risk Values: Abbi 5 year model risk: 3.7%. NCI Lifetime model risk: 11.7%. Prior Study Comparison: 09/01/2019 Bilateral Screening Mammogram, [facility]. 09/14/2020 Bilateral Screening Mammogram, [facility]. 09/26/2020 Left Diagnostic Mammogram, [facility]. Tissue Density: The breast tissue is heterogeneously dense. This may lower the sensitivity of mammography. Findings: Analyzed By CAD. There is no suspicious group of microcalcifications or new suspicious mass in either breast. Overall Assessment: Benign, BI-RAD 2 Management: Screening Mammogram of both breasts in 1 year. A clinical breast exam by your physician is recommended on an annual basis and results should be correlated with mammographic findings. Electronically signed and approved by: Winston Cristobal M.D. Radiologis
== END | disposition home or self-care (01) ==
LOC: RADMAMWWP 15:58
PROVIDERS: ATTEND Family Medicine
DX: Z12.31 Encounter for screening mammogram for malignant neoplasm of breast (principal)
CPT/HCPCS: 77063; 77067

== ENCOUNTER → 2021-11-11 | Outpatient (CLI) | payer MEDICARE ==
[~2021-11-11] MED LIST changes: +DENOSUMAB 60 MG/ML 1 ML SYRINGE SQ NR; -DENOSUMAB 60 MG/ML 1 ML SYRINGE SQ ONE
[2021-11-11 09:25] VITALS: BP 125/64; PULSE 67; RESP 16; TEMP 98.1
== END | disposition home or self-care (01) ==
LOC: PROCWHC3 09:18
PROVIDERS: ATTEND Obstetrics & Gynecology
DX: M81.0 Age-related osteoporosis without current pathological fracture (principal)
CPT/HCPCS: 96372; J0897

== ENCOUNTER 2021-12-25 07:55 | Day surgery (SDC) | payer MEDICARE ==
[2021-12-24 11:29] VITALS: BMI 23.2
[~2021-12-25 07:55] MED LIST changes: -DENOSUMAB 60 MG/ML 1 ML SYRINGE SQ NR; +LACTATED RINGERS 1,000 ML IV SCH; +LIDOCAINE 1% (10MG/ML) FOR IV START INTRADERMA PRN
[2021-12-25 08:39] VITALS: TEMP 96.9
[2021-12-25] MEDS ORDERED: PROPOFOL 10 MG/ML 20 ML VIAL IV ONE (09:11)
--- NOTE | 2021-12-25 09:37 | P.PCN ---
Date of Procedure: 12/25/21 Procedure(s) Performed: BRIEF HISTORY: Patient is a 71-year-old pleasant 8 female scheduled for an elective colonoscopy as a part of the for colorectal neoplasia. PROCEDURE PERFORMED: Colonoscopy. PREOPERATIVE DIAGNOSIS: Screening for colon cancer. IV sedation per Anesthesia. PROCEDURE: After informed consent was obtained, the patient, was brought into the endoscopy unit. IV sedation was administered by Anesthesia under continuous monitoring. Digital rectal examination was normal. Initially the Olympus CF-160 flexible video colonoscope was then inserted in the rectum, gradually advanced into the cecum without any difficulty. Careful examination was performed as the scope was gradually being withdrawn. Ileocecal valve and the appendiceal orifice were visualized and appeared normal. Prep was excellent. Mucosa of the cecum, ascending colon, transverse colon, descending colon, sigmoid colon, and rectum appeared normal. Retroflexion was performed in the rectum and no lesions were seen. The patient tolerated the procedure well. IMPRESSION: Normal-appearing colon from rectum to cecum with no evidence of colorectal neoplasia. RECOMMENDATIONS: Findings of this examination were discussed with the patient as well as a family. She was advised to have a repeat screening colonoscopy in 10 years..
[2021-12-25 10:04] VITALS: BP 121/72; PULSE 50; RESP 16
== END 2021-12-25 10:25 | disposition home or self-care (01) ==
LOC: ORWHC2ENDO 07:55
PROVIDERS: ATTEND Internal Medicine Gastroenterology
DX: Z12.11 Encounter for screening for malignant neoplasm of colon (principal); Z88.0 Allergy status to penicillin; M81.0 Age-related osteoporosis without current pathological fracture; Z91.040 Latex allergy status; Z79.899 Other long term (current) drug therapy
CPT/HCPCS: J2704; G0121

== ENCOUNTER → 2022-11-17 | Outpatient (CLI) | payer MEDICARE ==
--- NOTE | 2022-11-18 08:08 | MM ---
Reason for Exam: Screening (asymptomatic). Last mammogram was performed 1 year(s) and 2 month(s) ago. Patient History: Menarche at age 19. First Full-Term at age 35. Late child-bearing (after 30). Left ovary removed at age 44. Right ovary removed at age 44. Hysterectomy at age 44. Postmenopausal. Estrogen for 2 years from age 42 until age 44. Used Progesterone. 03/01/2001, Benign Stereotactic Core Biopsy on the left side. Mother had breast cancer, age 56. Risk Values: Abbi 5 year model risk: 3.7%. NCI Lifetime model risk: 11.2%. Prior Study Comparison: 09/14/2020 Bilateral Screening Mammogram, [facility]. 09/26/2020 Left Diagnostic Mammogram, [facility]. 09/24/2021 Bilateral MG 3D screening mammo w/cad, [facility]. Tissue Density: The breast tissue is heterogeneously dense. This may lower the sensitivity of mammography. Findings: Analyzed By CAD. There is no suspicious group of microcalcifications or new suspicious mass in either breast. Overall Assessment: Benign, BI-RAD 2 Management: Screening Mammogram of both breasts in 1 year. . Patient should continue monthly self-breast exams. A clinical breast exam by your physician is recommended on an annual basis. This exam should not preclude additional follow-up of suspicious palpable abnormalities. Note on Abbi scores and lifetime risk: 1. A Abbi score greater than 3% is considered moderate risk. If this is the case, consider specialist referral to assess eligibility for a risk reducing agent. 2. If overall lifetime risk for the development of breast cancer is 20% or higher, the patient may qualify for future screening with alternating mammogram and breast MRI. Electronically signed and approved by: Winston Cristobal M.D. Radiologis
== END | disposition home or self-care (01) ==
LOC: RADMAMWWP 08:00
PROVIDERS: ATTEND Family Medicine
DX: Z12.31 Encounter for screening mammogram for malignant neoplasm of breast (principal); Z78.0 Asymptomatic menopausal state; Z80.3 Family history of malignant neoplasm of breast
CPT/HCPCS: 77063; 77067

== ENCOUNTER → 2022-12-12 | Outpatient (CLI) | payer MEDICARE ==
[~2022-12-12] MED LIST changes: +DENOSUMAB 60 MG/ML 1 ML SYRINGE SQ NR; +DENOSUMAB 60 MG/ML 1 ML SYRINGE SQ ONE; -LACTATED RINGERS 1,000 ML IV SCH; -LIDOCAINE 1% (10MG/ML) FOR IV START INTRADERMA PRN
[2022-12-12 15:32] VITALS: BP 129/75; PULSE 71; RESP 16; TEMP 98.1
== END ==
LOC: PROCWHC3 13:26
PROVIDERS: ATTEND Family Medicine
DX: M81.0 Age-related osteoporosis without current pathological fracture (principal)
CPT/HCPCS: 96372; J0897

== ENCOUNTER → 2023-03-09 | Outpatient (CLI) | payer MEDICARE ==
--- NOTE | 2023-03-09 17:28 | BD ---
EXAMINATION TYPE: Axial Bone Density DATE OF EXAM: 03/09/2023 CLINICAL HISTORY: 72 years old Female. ICD-10 CODE: M89.9 DISORDER OF BONE, UNSPECIFIED Height: 61.5 Weight: 138.8 FRAX RISK QUESTIONS: Alcohol (3 or more units per day): no Family History (Parent hip fracture): no Glucocorticoids (More than 3mos): no (Ex: prednisone, prednisolone, methylprednisolone, dexamethasone, and hydrocortisone). History of Fracture in Adulthood: no Secondary Osteoporosis: 1. Type 1 Diabetes: no 2. Hyperthyroidism: no 3. Menopause before 45: no 4. Malnutrition: no 5. Chronic liver disease: no Rheumatoid Arthritis: no Current Tobacco Use: no RISK FACTORS HISTORY OF: Hip Fracture (Right/Left): no When: Spine Fracture: no When: History of Wrist Fracture: no When: Surgery to Spine/Hip(right/left)/Wrist (right/left): no When: Family History of Osteoporosis: Paternal Grandmother Active: yes Diet low in dairy products/other sources of calcium: no Postmenopausal woman: yes If Premenopausal, do you have irregular periods: Take estrogen and/or progesterone medications: no How long: Lost more than 2 inches in height since high school: no Frequent falls: no Poor Health: no Hyperparathyroidism: no Adrenal Insufficiency: no MEDICATIONS: Prednisone or other steroids: no How Long: Thyroid Medications: Which medication: no How Long: Osteoporosis Medications: yes Which medication: Prolia every 6 months How Long: past 4 years Additional Medications: Additional History: Anxiety meds, Multi Vit., Zinc EXAM MEASUREMENTS: Bone mineral densitometry was performed using the [employer] System. Bone mineral density as measured about the Lumbar spine is: ----- L1-L4(G/cm2): 1.041 T Score Values are as follows: ----- L1: -1.8 ----- L2: -0.1 ----- L3: -1.3 ----- L4: -1.5 ----- L1-L4: -1.2 Z Score Values are as follows: ----- L1: 0.1 ----- L2: 1.6 ----- L3: 0.4 ----- L4: 0.2 ----- L1-L4: 0.6 Bone mineral density has: decreased 13.5 % since study of: 03/08/2021 Bone mineral density about the R hip (g/cm2): 0.920 Bone mineral density about the L hip (g/cm2): 0.903 T Score values are as follows: -----R Neck: -1.0 -----L Neck: -0.8 -----R Total: -0.7 -----L Total: -0.8 Z Score values are as follows: -----R Neck: 0.7 -----L Neck: 0.9 -----R Total: 0.8 -----L Total: 0.7 Bone mineral density has:decreased 11.3 % since study of: 03/08/2021 FRAX%s: The graph provided illustrates a 8.9 % chance for a major osteoporotic fx and a 0.9% chance f or the hips probability for fx in 10 years time. IMPRESSION: Osteopenia (T Score between -2.5 and -1). There is slightly increased risk of fracture and the patient may be considered for treatment. Re-Screen 2-5 years. NOTE: T-SCORE=SD OF THE YOUNG ADULT MEAN.
== END | disposition home or self-care (01) ==
LOC: RADBDWWP 14:39
PROVIDERS: ATTEND Family Medicine
DX: M85.88 Other specified disorders of bone density and structure, other site (principal); Z78.0 Asymptomatic menopausal state
CPT/HCPCS: 77080

== ENCOUNTER → 2023-07-01 | Outpatient (CLI) | payer MEDICARE ==
[2023-07-01] MEDS: DENOSUMAB 60 MG/ML 1 ML SYRINGE SQ NR (13:34)
[2023-07-01 13:53] VITALS: BP 129/74; PULSE 56; RESP 16; TEMP 98
== END ==
LOC: PROCWHC3 13:09
PROVIDERS: ATTEND Family Medicine
DX: M81.0 Age-related osteoporosis without current pathological fracture (principal)
CPT/HCPCS: 96372; J0897

== ENCOUNTER → 2023-11-19 | Outpatient (CLI) | payer MEDICARE ==
--- NOTE | 2023-12-07 09:55 | MM ---
Reason for Exam: Screening (asymptomatic). Last screening mammogram was performed 12 month(s) ago. Patient History: Menarche at age 19. First Full-Term at age 35. Late child-bearing (after 30). Left ovary removed at age 44. Right ovary removed at age 44. Hysterectomy at age 44. Postmenopausal. Estrogen for 2 years from age 42 until age 44. Used Progesterone. 03/01/2001, Benign Stereotactic Core Biopsy on the left side. Mother had breast cancer, age 56. Risk Values: Abbi 5 year model risk: 3.7%. NCI Lifetime model risk: 10.7%. Prior Study Comparison: 09/26/2020 Left Diagnostic Mammogram, [facility]. 09/24/2021 Bilateral MG 3D screening mammo w/cad, [facility]. 11/17/2022 Bilateral MG 3D screening mammo w/cad, [facility]. Tissue Density: The breasts are heterogeneously dense, which may obscure small masses. Findings: Analyzed By CAD. There is no suspicious group of microcalcifications or new suspicious mass in either breast. Overall Assessment: Benign, BI-RAD 2 Management: Screening Mammogram of both breasts in 1 year. . Patient should continue monthly self-breast exams. A clinical breast exam by your physician is recommended on an annual basis. This exam should not preclude additional follow-up of suspicious palpable abnormalities. Note on Abbi scores and lifetime risk: 1. A Abbi score greater than 3% is considered moderate risk. If this is the case, consider specialist referral to assess eligibility for a risk reducing agent. 2. If overall lifetime risk for the development of breast cancer is 20% or higher, the patient may qualify for future screening with alternating mammogram and breast MRI. Electronically signed and approved by: Winston Cristobal M.D. Radiologis
== END | disposition home or self-care (01) ==
LOC: RADMAMWWP 10:35
PROVIDERS: ATTEND Family Medicine
DX: Z12.31 Encounter for screening mammogram for malignant neoplasm of breast (principal); Z78.0 Asymptomatic menopausal state; Z80.3 Family history of malignant neoplasm of breast; Z90.721 Acquired absence of ovaries, unilateral
CPT/HCPCS: 77063; 77067